=== PATIENT | female | born 1990 | race Caucasian/White ===

== ENCOUNTER → 2019-01-16 10:11 | Outpatient (CLI) | payer BC, SELFPAY ==
[2019-01-16 06:47] VITALS: BMI 21.4
== END ==
PROVIDERS: Referring Provider Physician Assistant Surgical; Visit Provider Physician Assistant Surgical
DX: J02.9 Acute pharyngitis, unspecified (principal)
CPT/HCPCS: 87081

== ENCOUNTER → 2019-07-22 | Outpatient (CLI) | payer BC, SELFPAY ==
[2019-07-22 13:08] VITALS: BMI 21.4
== END | disposition home or self-care (01) ==
PROVIDERS: Referring Provider Physician Assistant Medical; Visit Provider Physician Assistant Medical
DX: J02.9 Acute pharyngitis, unspecified (principal)
CPT/HCPCS: 87070

== ENCOUNTER 2025-01-03 15:47 | Emergency (ER) | payer OTHER, SELFPAY ==
[2025-01-03 15:48] VITALS: BP 123/76; PULSE 85; RESP 17; TEMP 36.6; O2SAT 100; BMI 19.5
--- NOTE | 2025-01-03 16:43 | CT_ITS ---
EXAM: CT brain without IV contrast CLINICAL HISTORY: Neurologic deficit COMPARISON: None TECHNIQUE: Multiple contiguous axial images of the brain were obtained without the administration of intravenous contrast. Two-dimensional coronal and sagittal reformatted images were reconstructed. Low-dose imaging technique was utilized. FINDINGS: No evidence of acute intracranial hemorrhage, midline shift or mass effect. No definite CT evidence of acute territorial cortical infarction. No hydrocephalus. Cerebral volume is maintained. Calvarium is intact. Minimal frothy left sphenoid sinus mucosal thickening. Mastoid air cells are clear. CT/Brain/Head without Contrast IMPRESSION: No acute intracranial abnormality. If there is persistent clinical concern for acute ischemia, MRI is most sensitive. Reading Location: [facility]
--- NOTE | 2025-01-03 16:50 | EX.ED.DYSGE1 ---
HPI History of Present Illness Chief Complaint: Neuro S/Sx Narrative Narrative: 35-year-old female past medical history of what she calls a self diagnosis of social anxiety disorder as well as depression, was taking Cymbalta, presents for CT imaging of her brain and medical clearance to speak with a crisis counselor. She and her state that she reports loss of fine motor skills and difficulty with speech for the last few weeks. She was seen by her primary care provider today, and sent for evaluation for her neurological symptoms that have been ongoing. Additionally, there is concern for dev as she endorses insomnia and decreased appetite as well along with her depression. She states that she is having problems concentrating as well and is confused at times. She states that she can walk into her room, and forget why she was entering it in the end because she was having racing thoughts. She denies any physical symptoms such as fever or chills, no chest pain or shortness of breath, no nausea or vomiting. [facility] Medical History [employer] implant Home Medications ?Medication ?Instructions ?Recorded ?Last Taken ?Type sumatriptan succinate 25 mg tablet 25 mg PO .X1 PRN MIGRAINE 12/31/15 Unknown History Allergy/AdvReac Type Severity Reaction Status Date / Time citalopram (From Celexa) Allergy Mild Hives Verified 01/03/25 15:48 ketorolac (From Toradol) Allergy Mild Rash/Hives Verified 01/03/25 15:48 citalopram hydrobromide Allergy Hives Verified 01/03/25 15:48 (From Celexa) ketorolac tromethamine (From Allergy Hives Verified 01/03/25 15:48 Toradol) acetaminophen AdvReac Unknown Verified 01/03/25 15:48 Social History Smoking Status: Never smoker alcohol intake: never ROS ROS ED ROS Narrative Review of systems positive for loss of fine motor skills and problems with concentration. Questionable headaches. Decreased sleep and decreased appetite. Positive depression and anxiety. Denies physical symptoms such as chest pain or shortness of breath. EXAM Physical Exam Narrative Exam Narrative: Afebrile. Vital signs noted. Nontoxic-appearing. Cardiovascular examination reveals a regular rate and rhythm. Lungs are clear to auscultation bilaterally. Abdomen is soft and nontender without guarding or rebound. Positive bowel sounds. Neurological examination is nonfocal and nonlateralizing. Psychiatric examination does reveal mild anxiety with slightly depressed affect. Const Vital Signs: 01/03/25 15:48 01/03/25 18:18 01/03/25 20:00 Temperature 97.9 F Temperature Source Temporal Pulse Rate 85 83 Respiratory Rate 17 18 15 Blood Pressure 123/76 H 113/71 Blood Pressure Mean 91 85 Pulse Ox 100 100 Oxygen Delivery Method Room Air Room Air 01/03/25 21:58 Temperature 98 F Temperature Source Pulse Rate 65 Respiratory Rate 18 Blood Pressure 122/74 H Blood Pressure Mean 90 Pulse Ox 99 Oxygen Delivery Method MDM MDM MDM Narrative Medical decision making narrative: Differential diagnosis includes but not limited to brain mass versus dev. I have low suspicion for stroke based on her history and physical. I do not feel stroke team is indicated as her symptoms have been ongoing for greater than 24 hours, and she does not have a debilitating deficit feel that she would be a TNK candidate. CT brain will be obtained as well as medical clearance labs for crisis evaluation. Of note, her primary care provider had called in regarding the patient and stated that she has had a change in her behavior over the last month. She has not slept in weeks. He requested a CT of the brain and a crisis evaluation. I reviewed the radiology report of the CT of the brain and there is no acute process. I do not feel that she needs emergent MRI. She has normal neurological examination here. I reviewed her laboratory work and she has normal white count of 5.4, hemoglobin normal at 13.1, platelet count normal at 255. Electrolyte panel is significant for CO2 of 19 which may be secondary to hyperventilation. She has a total bilirubin elevated at 1.65 which I think is nonspecific but AST and ALT as well as alk phos are normal. Urine for drugs of abuse is negative. Serum is negative. Alcohol level is also negative. At this point in time, I do feel she is likely cleared for evaluation by the renal case manager. In discussion with social work/case management, it was felt that she requires admission. She is undergoing symptoms of insomnia and incessantly texting her reportedly, and also sending letters to her childhood psychologist. She is having problems concentrating. At this point in time, she has been accepted to [facility] and will be transferred there in stable condition for her depression and dev. History & Record Review Discussion w/independent historian: Patient Lab Data Attestation: I reviewed the patient's lab results. Labs: Laboratory Results - last 24 hr 01/03/25 01/03/25 17:30 20:10 WBC 5.4 RBC 4.17 L Hgb 13.1 Hct 37.4 MCV 89.7 MCH 31.4 MCHC 35.0 RDW Std Deviation 38.9 RDW Coeff of Charisse 11.9 Plt Count 255 MPV 9.2 Immature Gran % (Auto) 0.400 Neut % (Auto) 65.1 Lymph % (Auto) 25.7 [place] % (Auto) 7.8 Eos % (Auto) 0.4 Baso % (Auto) 0.6 Absolute Neuts (auto) 3.5 Absolute Lymphs (auto) 1.38 Nucleated RBC % 0 Sodium 139 Potassium 3.8 Chloride 105 Carbon Dioxide 19.0 L Anion Gap 16 H BUN 8 Creatinine 0.79 Estim Creat Clear Calc 85.86 Est GFR (MDRD) Non-Af 102 BUN/Creatinine Ratio 10.4 Glucose 87 Calcium 9.2 Total Bilirubin 1.65 H AST 19 ALT 17 Alkaline Phosphatase 43 Total Protein 7.1 Albumin 4.9 Globulin 2.2 Albumin/Globulin Ratio 2.2 Serum , Qual NEGATIVE Urine Opiates Screen NEGATIVE U Buprenorphine Qual NEGATIVE Ur Oxycodone Screen NEGATIVE Urine Methadone Screen NEGATIVE Urine Fentanyl Screen NEGATIVE Ur Barbiturates Screen NEGATIVE Ur Phencyclidine Scrn NEGATIVE Ur Amphetamines Screen NEGATIVE U Benzodiazepines Scrn NEGATIVE Urine Cocaine Screen NEGATIVE U Cannabinoids Screen PREUMTIVE POSITIVE Ethyl Alcohol < 10.1 Radiography Diagnostic Testing: Clinical Impression(s) from Imaging Studies Brain CT 01/03/25 16:43 IMPRESSION: No acute intracranial abnormality. If there is persistent clinical concern for acute ischemia, MRI is most sensitive. 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
[2025-01-03 16:58] VITALS: BMI 19.5
--- NOTE | 2025-01-03 17:15 | ED.RN ---
patients S.O states he used to do CT scans and would like to interpret her CT scan. RN states you can follow up with medical records. S.O. states why? Even if I get her consent to see it? RN states we don't show you scans of patients but you can follow up with medical records and see them if you would like.
--- NOTE | 2025-01-03 17:32 | ED.RN ---
Patient refused bloodwork until after CT. Dr. Hernandez made aware and ok with patients request. pt states I really don't want to do this. I hate needles. Is this really necessary? RN states yes it is. pt agreeable to plan of care
[2025-01-03 17:43] LABS: Absolute Lymphocyte Count 1.38 X10^3/uL (0.83-4.51); Absolute Neutrophil Count 3.5 X10^3/uL (2.0-7.7); Basophil# 0.03 X10^3/uL; Basophil% 0.6 % (0-1); Eosinophil# 0.02 X10^3/uL; Eosinophils% 0.4 % (0-5); Hematocrit 37.4 % (37-47); Hemoglobin 13.1 g/dL (12.0-15.0); Lymphocyte # 1.38 X10^3/ul (0.83-4.51); Lymphocyte % 25.7 % (19-41); Mean Corpuscular Hgb 31.4 pg (27.0-32.0); Mean Corpuscular Volume 89.7 fL (81-99); Mean Platelet Vol. 9.2 fl (6.2-12.0); Monocyte# 0.42 X10^3/uL; Monocyte% 7.8 % (0-10); NRBC Flagged by Analyzer 0 % (0-5); Neutrophil % 65.1 % (47-70); Platelet Count 255 K/mm3 (150-450); RBC Distribution Width CV 11.9 % (11.6-14.6); RBC Distribution Width SD 38.9 fl (35.1-43.9); Red Blood Count 4.17 M/mm3 (4.2-5.4); White Blood Count 5.4 K/mm3 (4.4-11.0)
[2025-01-03 18:01] LABS: Alcohol, Blood (Medical)-Serum < 10.1 mg/dL (<=10.0)
[2025-01-03 18:18] VITALS: RESP 18
[2025-01-03 18:25] LABS: ALB/GLOB Ratio 2.2 RATIO (0.9-2.4); AST(SGOT) 19 U/L (<=31); Alanine Aminotransfer ALT/SGPT 17 U/L (<=34); Albumin, Serum 4.9 g/dL (3.5-5.0); Alkaline Phosphatase 43 U/L (35-104); Anion Gap 16 (5-15); BUN 8 mg/dL (4-19); BUN/Creat Ratio 10.4 RATIO (10-20); Calcium,Total 9.2 mg/dL (7.6-11.0); Chloride 105 mmol/L (98-108); Creatinine, Serum 0.79 mg/dL (0.70-1.20); EST Glomerular Filtration Rate 102 (>60); Estimated Creatinine Clearance 85.86 ml/min (50-250); Globulin 2.2 g/dL (2.2-4.2); Glucose 87 mg/dL (70-99); Potassium 3.8 mmol/L (3.3-5.1); Protein, Total 7.1 g/dL (5.9-8.4); Sodium Level 139 mmol/L (133-145); Total Bilirubin 1.65 mg/dL (0.00-1.30)
[2025-01-03 19:15] LABS: Internal QC Validated? YES +Cl - CLEAR BKGD; Pregnancy, Serum, hCG Quali. NEGATIVE Negative
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
[2025-01-03 20:00] VITALS: BP 113/71; PULSE 83; RESP 15; O2SAT 100
[2025-01-03 21:00] LABS: Amphetamine Urine NEGATIVE (<1000 ng/mL); Barbiturate Urine NEGATIVE (< 200 ng/mL); Benzodiazepine Urine NEGATIVE (< 200 ng/mL); Buprenorphine Urine NEGATIVE (< 200 ng/mL); Cocaine Urine NEGATIVE (< 300 ng/mL); Fentanyl, Urine NEGATIVE; Methadone Urine NEGATIVE (< 300 ng/mL); Opiates Urine NEGATIVE (< 300 ng/mL); Oxycodone, Urine NEGATIVE (< 100 ng/mL); PCP Urine NEGATIVE (< 25 ng/mL); THC Urine PREUMTIVE POSITIVE (< 50 ng/mL)
--- NOTE | 2025-01-03 21:03 | CM.ED ---
Social work Called and spoke with Misa at [facility] (ph: ). Beds available and referral faxed (f: ). Per patient request, REA asked about individual beds and Misa confirmed individual beds available. Tracy Dickinson, ENTERPRISE APPLICATIONS MANAGER, SIGNS CLEANER
--- NOTE | 2025-01-03 21:34 | ED.RN ---
PT ACCEPTED AT [facility] DR. SANDERS N2N [phone] INTAKE UNIT
--- NOTE | 2025-01-03 21:53 | CM.ED ---
Social work Patient accepted at [facility]. Dr. Ochoa N2N [phone] Intake Unit Patient updated and patient provided brochure for [facility], per request. SW offered to call patient's who had left the ED, but patient stated ability to do so. Patient denied further questions at this time. Plan: [facility], pending transport Tracy Dickinson MSW, SMOCKING MACHINE OPERATOR
[2025-01-03 21:58] VITALS: BP 122/74; PULSE 65; RESP 18; TEMP 36.6; O2SAT 99
--- NOTE | 2025-01-03 21:58 | ED.RN ---
report called to Milena JAIMES @ [facility],
== END 2025-01-03 22:51 ==
PROVIDERS: Emergency Provider Emergency Medicine; PCP Family Medicine; Referring Provider Emergency Medicine; Visit Provider Emergency Medicine
DX: F32.A Depression, unspecified (principal); Z71.1 Person with feared health complaint in whom no diagnosis is made
CPT/HCPCS: 36415; 70450; 80053; 80307; 82077; 84703; 85025; 99283

== ENCOUNTER → 2025-01-25 | Outpatient (CLI) | payer OTHER, SELFPAY ==
[2025-01-25 10:48] LABS: Absolute Lymphocyte Count 1.69 X10^3/uL (0.83-4.51); Absolute Neutrophil Count 6.1 X10^3/uL (2.0-7.7); Basophil# 0.05 X10^3/uL; Basophil% 0.6 % (0-1); Eosinophil# 0.17 X10^3/uL; Hematocrit 38.2 % (37-47); Lymphocyte # 1.69 X10^3/ul (0.83-4.51); Lymphocyte % 19.9 % (19-41); Mean Platelet Vol. 8.7 fl (6.2-12.0); Monocyte# 0.52 X10^3/uL; Monocyte% 6.1 % (0-10); NRBC Flagged by Analyzer 0 % (0-5); Neutrophil # 6.05 X10^3/uL (2.7-7.7); Neutrophil % 71.2 % (47-70); Platelet Count 342 K/mm3 (150-450); RBC Distribution Width CV 11.9 % (11.6-14.6); RBC Distribution Width SD 39.5 fl (35.1-43.9); White Blood Count 8.5 K/mm3 (4.4-11.0)
[2025-01-25 11:30] LABS: Lithium 0.78 mmol/L (0.60-1.20)
[2025-01-25 11:34] LABS: ALB/GLOB Ratio 1.6 RATIO (0.9-2.4); AST(SGOT) 19 U/L (<=31); Alanine Aminotransfer ALT/SGPT 19 U/L (<=34); Albumin, Serum 4.5 g/dL (3.5-5.0); Alkaline Phosphatase 47 U/L (35-104); Anion Gap 16 (5-15); BUN 8 mg/dL (4-19); BUN/Creat Ratio 9.5 RATIO (10-20); Calcium,Total 9.7 mg/dL (7.6-11.0); Carbon Dioxide 18.2 mmol/L (21.0-32.0); Chloride 103 mmol/L (98-108); Creatinine, Serum 0.89 mg/dL (0.70-1.20); EST Glomerular Filtration Rate 88 (>60); Globulin 2.8 g/dL (2.2-4.2); Glucose 85 mg/dL (70-99); Potassium 4.4 mmol/L (3.3-5.1); Protein, Total 7.3 g/dL (5.9-8.4); Sodium Level 137 mmol/L (133-145); Total Bilirubin 0.74 mg/dL (0.00-1.30)
== END | disposition home or self-care (01) ==
PROVIDERS: PCP Family Medicine; Referring Provider Student in an Organized Health Care Education/Training Program; Visit Provider Student in an Organized Health Care Education/Training Program
DX: F39 Unspecified mood [affective] disorder (principal)
CPT/HCPCS: 36415; 80053; 80178; 85025